=== PATIENT | male | born 1955 | race Caucasian/White ===

== ENCOUNTER 2019-12-07 16:48 | Inpatient (IN) | payer OTHER ==
[2019-12-07] MEDS ORDERED: SODIUM CHLORIDE 1,000 ML IV SCH (17:00)
[2019-12-07 17:27] LABS: BASO % 1.2 % (0-2.0); HEMATOCRIT 48.1 % (35.4-49); HEMOGLOBIN 15.9 GM/dl (11.7-16.9); LYMPH % 16.3 % (8-40); MCH 30.3 pg (25.7-33.7); MEAN CELL VOLUME 91.7 fl (80-96); MEAN PLT VOLUME 7.4 fl (7.5-11.1); MONO % 6.8 % (3.8-10.2); NEUT % 74.7 % (42.8-82.8); PLATELET COUNT 240 K/MM3 (134-434); RBC 5.25 M/mm3 (4.00-5.60); RDW 12.5 % (11.9-15.9); WHITE BLOOD COUNT 8.6 K/mm3 (4.0-10.8)
[2019-12-07 17:48] LABS: BILIRUBIN,TOTAL 0.8 mg/dl (0.2-1); CALCIUM 8.6 mg/dl (8.5-10); CREATININE 0.8 mg/dl (0.55-1.3); POTASSIUM 3.9 mmol/L (3.5-5.1); TOT PROT 6.7 g/dl (6.4-8.2)
[2019-12-07 17:49] LABS: URINE APPEARANCE CLEAR; URINE BILIRUBIN NEGATIVE (NEGATIVE); URINE COLOR YELLOW; URINE GLUCOSE (UA) NEGATIVE (NEGATIVE); URINE KETONE NEGATIVE (NEGATIVE)
[2019-12-07 17:50] LABS: PH,URINE 5.5 (4.5-8); URINE LEUK ESTERASE NEGATIVE (NEGATIVE); URINE NITRITE NEGATIVE (NEGATIVE); URINE PROTEIN NEGATIVE (NEGATIVE); URINE UROBILINOGEN 0.2 (0.2-1.0)
[2019-12-07 17:52] LABS: INR 1.01 (0.82-1.09); PROTHROMBIN TIME (PATIENT) 12.9 SEC (10.2-13.0)
[2019-12-07 17:53] LABS: ACTIVATED PTT 26.3 SECONDS (25.2-36.5)
--- NOTE | 2019-12-07 18:13 | PDOC ---
Attending Attestation - Resident Resident Name: Sagar Keith - ED Attending Attestation I have performed the following: I have examined & evaluated the patient, The case was reviewed & discussed with the resident, I agree w/resident's findings & plan, Exceptions are as noted - HPI HPI: 12/07/19 18:13 64 years old last seen normal at 9 AM presents to the ED with difficulty finding words did not remember his bosses name as well as where he was. Symptoms are improving but still not 100% back to baseline no weakness no numbness no severe headache No history of similar prior. Mild to moderate gradually improving. - Physicial Exam PE: 12/07/19 18:14 Vitals: Triage Vital signs reviewed General Appearance: No acute distress, well nourished well developed, Head: Atraumatic, Eyes: Pupils equal reactive round, extraocular movement intact Cardiac: Regular rate and rhythym, no murmurs, no rubs, no gallops, Lungs: Clear to auscultation bilateral, good air movement bilaterally, Abdomen: Soft, non distended, normal bowel sounds, non tender to palpation Extremities: Full range of motion to all extremities, no cyanosis, clubbing, or edema Skin: Warm and dry, no rashes or lesions, no rash, no petechiae Neuro: AOX3; cranial Nerves 2-12 grossly intact, strength intact to all extremities, sensation intact to all extremities, gait normal Psych: Normal mood, normal affect - Medical Decision Making 12/07/19 18:13 Patient still with some persistent subtle word finding difficulty. Given age high cholesterol will give full dose aspirin admit to medicine for neurology consultation and MRI to rule out CVA Currently NIHSS score 0 Heart Score/ECG Review - ECG Impressions Comment:: 12/07/19 18:14 EKG performed at 1712 demonstrates normal sinus rhythm no ST elevations no T wave inversions Interpreted by me. Discharge - Discharge Information Problems reviewed: Yes Clinical Impression/Diagnosis: Word finding difficulty, TIA (transient ischemic attack) Condition: Fair - Follow up/Referral - Patient Discharge Instructions - Post Discharge Activity
[2019-12-07] MEDS ORDERED: ASPIRIN 81 MG CHEWABLE TABLETS PO ONE (18:23)
[2019-12-07] MEDS ORDERED: ASPIRIN 81 MG CHEWABLE TABLETS ONE (18:33)
--- NOTE | 2019-12-07 18:41 | PDOC ---
History of Present Illness - General Chief Complaint: Altered Mental Status Stated Complaint: "I FELT DISORIENTED" Time Seen by Provider: 12/07/19 16:50 - History of Present Illness Initial Comments: 64 YOM h/o depression and HLD presents for episode of confusion and disorientation this am. 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 This concerned him so he presented to urgent care who suggested he present to the ED for a CT head. He denies CP, SOB, N/V/D, fever, chills, recent sick contacts, diziness, balance disturbance, weakness or loss of sensation. He says that this is the first time this has ever happened to him. He feels that he has not returned to baseline as he is still unsure of his supervisors name. Past History - Medical History Allergies/Adverse Reactions: Allergies Allergy/AdvReac Type Severity Reaction Status Date / Time No Known Allergies Allergy Verified 12/07/19 16:49 Home Medications: Ambulatory Orders Aspirin [Aspirin EC] 81 mg PO DAILY 12/07/19 Pravastatin Sodium [Pravachol] 0 mg PO DAILY 12/07/19 Sertraline HCl [Zoloft] 0 mg PO DAILY 12/07/19 COPD: No Hypercholesterolemia: Yes Psychiatric Problems: Yes (depression) - Psycho-Social/Smoking History Smoking History: Never smoked Have you smoked in the past 12 months: No Information on smoking cessation initiated: No - Substance Abuse Hx (Audit-C & DAST Scrn) How often the patient has a drink containing alcohol: Never Score: In Men: 4 or > Positive; In Women: 3 or > Positive: 0 Screen Result (Pos requires Nsg. Audit-10AR): Negative In the last yr the pt used illegal drug/Rx for NonMed reason: No Score: Yes response is considered Positive: 0 Screen Result (Positive result requires Nsg. DAST-10): Negative Review of Systems - Review of Systems Able to Perform ROS?: Yes Constitutional: Yes: See HPI HEENTM: Yes: See HPI Respiratory: Yes: See HPI Cardiac (ROS): Yes: See HPI ABD/GI: Yes: See HPI : Yes: See HPI Musculoskeletal: Yes: See HPI Integumentary: Yes: See HPI Neurological: Yes: See HPI Endocrine: Yes: See HPI Hematologic/Lymphatic: Yes: See HPI *Physical Exam - Vital Signs Last Vital Signs Temp Pulse Resp BP Pulse Ox 98 F 74 18 132/90 99 12/07/19 16:48 12/07/19 16:48 12/07/19 16:48 12/07/19 16:48 12/07/19 16:48 - Physical Exam General Appearance: Yes: Nourished, Appropriately Dressed HEENT: positive: EOMI, MANDEEP, Normal ENT Inspection, Normal Voice Neck: positive: Trachea midline, Normal Thyroid Respiratory/Chest: positive: Lungs Clear, Normal Breath Sounds Cardiovascular: positive: Regular Rhythm, Regular Rate, S1, S2 Gastrointestinal/Abdominal: positive: Normal Bowel Sounds, Flat, Soft 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 intact, Fully Oriented, Alert, Normal Mood/Affect, Normal Response, Motor Strength 5/5 ED Treatment Course - LABORATORY CBC & Chemistry Diagram: 12/07/19 17:17 12/07/19 17:00 - ADDITIONAL ORDERS Additional order review: Laboratory Results 12/07/19 12/07/19 12/07/19 17:17 17:00 17:00 PT with INR INR PTT (Actin FS) Sodium 137 Potassium 3.9 Chloride 107 Carbon Dioxide 25 Anion Gap 5 L BUN 15.0 Creatinine 0.8 Est GFR (CKD-EPI)AfAm 107.89 Est GFR (CKD-EPI)NonAf 93.09 Random Glucose 92 Calcium 8.6 Total Bilirubin 0.8 AST 16 ALT 20 Alkaline Phosphatase 61 Troponin I < 0.03 Total Protein 6.7 Albumin 4.0 Triglycerides 160 H Cholesterol 187 Total LDL Cholesterol 113 H HDL Cholesterol 42 Urine Color Yellow Urine Appearance Clear Urine pH 5.5 Ur Specific [place] 1.025 Urine Protein Negative Urine Glucose (UA) Negative Urine Ketones Negative Urine Blood Negative Urine Nitrite Negative Urine Bilirubin Negative Urine Urobilinogen 0.2 Ur Leukocyte Esterase Negative 12/07/19 16:56 PT with INR 12.9 INR 1.01 PTT (Actin FS) 26.3 Sodium Potassium Chloride Carbon Dioxide Anion Gap BUN Creatinine Est GFR (CKD-EPI)AfAm Est GFR (CKD-EPI)NonAf Random Glucose Calcium Total Bilirubin AST ALT Alkaline Phosphatase Troponin I Total Protein Albumin Triglycerides Cholesterol Total LDL Cholesterol HDL Cholesterol Urine Color Urine Appearance Urine pH Ur Specific [place] Urine Protein Urine Glucose (UA) Urine Ketones Urine Blood Urine Nitrite Urine Bilirubin Urine Urobilinogen Ur Leukocyte Esterase 12/07/19 17:17 RBC 5.25 MCV 91.7 MCHC 33.0 RDW 12.5 MPV 7.4 L Neutrophils % 74.7 Lymphocytes % 16.3 Monocytes % 6.8 Eosinophils % 1.0 Basophils % 1.2 Medical Decision Making - Medical Decision Making 64 YOM h/o depression and HLD presents after episode of confusion and disorientation. - has not returned to baseline - vitals stable - exam unremarkable - given persistent sx will CT head and admit for TIA work up 12/07/19 18:44 - labs wnl - CT wnl - admitting for persisting sx Discharge - Discharge Information Problems reviewed: Yes Clinical Impression/Diagnosis: Word finding difficulty, TIA (transient ischemic attack) Condition: Fair - Admission Yes - Follow up/Referral Referrals: Dayday Guevara MD [Primary Care Provider] - - Patient Discharge Instructions - Post Discharge Activity
--- NOTE | 2019-12-07 20:32 | HP ---
CHIEF COMPLAINT: AMS, Headache PCP: Dayday Guevara HISTORY OF PRESENT ILLNESS: This is a 64 y/o male with a PMHx of Depression, HLD. Who presents to the ED with an episode of confusion and disorientation x this morning. 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 He became concerned and went to an Urgent Care Facility for evaluation, who suggested he come to the hospital for a Head CT. Per the patient, he said his noted that he was not acting like himself today. Patient denies visual changes, numbness, weakness. Patient denies fever, chills, cough, SOB, dizziness, CP, palpitations, AP, N/V/D, constipation, melena, hematochezia, dysuria. ER course was notable for: (1) Head CT- neg ICH (2) EKG- NSR with no ST or TWI (3) NIHSS 0 Recent Travel: None PAST MEDICAL HISTORY: See HPI PAST SURGICAL HISTORY: Ganglion Cyst Removal Social History: Smoking: Former 1PPD > 45 yrs ago Alcohol: Former> 30yrs ago Drugs: Denies Lives with spouse, employed [employer], [employer] Guidance Counselor Allergies No Known Allergies Allergy (Verified 12/07/19 16:49) HOME MEDICATIONS: Home Medications Medication Instructions Recorded Aspirin [Aspirin EC] 81 mg PO DAILY 12/07/19 Pravastatin Sodium [Pravachol] 0 mg PO DAILY 12/07/19 Sertraline HCl [Zoloft] 0 mg PO DAILY 12/07/19 REVIEW OF SYSTEMS CONSTITUTIONAL: Absent: fever, chills, diaphoresis, generalized weakness, malaise, loss of appetite, weight change HEENT: Absent: rhinorrhea, nasal congestion, throat pain, throat swelling, difficulty swallowing, mouth swelling, ear pain, eye pain, visual changes CARDIOVASCULAR: Absent: chest pain, syncope, palpitations, irregular heart rate, lightheadedness, peripheral edema RESPIRATORY: Absent: cough, shortness of breath, dyspnea with exertion, orthopnea, wheezing, stridor, hemoptysis GASTROINTESTINAL: Absent: abdominal pain, abdominal distension, nausea, vomiting, diarrhea, constipation, melena, hematochezia GENITOURINARY: Absent: dysuria, frequency, urgency, hesitancy, hematuria, flank pain, genital pain MUSCULOSKELETAL: Absent: myalgia, arthralgia, joint swelling, back pain, neck pain SKIN: Absent: rash, itching, pallor HEMATOLOGIC/IMMUNOLOGIC: Absent: easy bleeding, easy bruising, lymphadenopathy, frequent infections ENDOCRINE: Absent: unexplained weight gain, unexplained weight loss, heat intolerance, cold intolerance NEUROLOGIC: headache, mental status changes Absent: focal weakness or paresthesias, dizziness, unsteady gait, seizure, bladder or bowel incontinence PSYCHIATRIC: Absent: anxiety, depression, suicidal or homicidal ideation, hallucinations. PHYSICAL EXAMINATION Vital Signs - 24 hr 12/07/19 12/07/19 12/07/19 16:48 18:44 19:30 Temperature 98 F 98 F Pulse Rate 74 Pulse Rate [ 71 69 Left Apical] Respiratory 18 18 16 Rate Blood Pressure 132/90 Blood Pressure 113/67 118/77 [Right Arm] O2 Sat by Pulse 99 98 98 Oximetry (%) GENERAL: Awake, alert, and fully oriented, in no acute distress. HEAD: Normal with no signs of trauma. EYES: Pupils equal, round and reactive to light, extraocular movements intact, sclera anicteric, conjunctiva clear. No lid lag. EARS, NOSE, THROAT: Ears normal, nares patent, oropharynx clear without exudates. Moist mucous membranes. NECK: Normal range of motion, supple without lymphadenopathy, JVD, or masses. LUNGS: Breath sounds equal, clear to auscultation bilaterally. No wheezes, and no crackles. No accessory muscle use. HEART: Regular rate and rhythm, normal S1 and S2 without murmur, rub or gallop. ABDOMEN: Soft, nontender, not distended, normoactive bowel sounds, no guarding, no rebound, no masses. No hepatomegaly or splenomegaly. MUSCULOSKELETAL: Normal range of motion at all joints. No bony deformities or tenderness. No CVA tenderness. UPPER EXTREMITIES: 2+ pulses, warm, well-perfused. No cyanosis. No clubbing. No peripheral edema. LOWER EXTREMITIES: 2+ pulses, warm, well-perfused. No calf tenderness. No peripheral edema. NEUROLOGICAL: Cranial nerves II-XII intact. Normal speech. Strength intact to all extremities, Sensation intact to all extremities. Gait not observed. PSYCHIATRIC: Cooperative. Good eye contact. Appropriate mood and affect. SKIN: Warm, dry, normal turgor, no rashes or lesions noted, normal capillary refill. Laboratory Results - last 24 hr 12/07/19 12/07/19 12/07/19 16:56 17:00 17:00 WBC RBC Hgb Hct MCV MCH MCHC RDW Plt Count MPV Absolute Neuts (auto) Neutrophils % Lymphocytes % Monocytes % Eosinophils % Basophils % PT with INR 12.9 INR 1.01 PTT (Actin FS) 26.3 Sodium 137 Potassium 3.9 Chloride 107 Carbon Dioxide 25 Anion Gap 5 L BUN 15.0 Creatinine 0.8 Est GFR (CKD-EPI)AfAm 107.89 Est GFR (CKD-EPI)NonAf 93.09 Random Glucose 92 Calcium 8.6 Total Bilirubin 0.8 AST 16 ALT 20 Alkaline Phosphatase 61 Troponin I < 0.03 Total Protein 6.7 Albumin 4.0 Triglycerides 160 H Cholesterol 187 Total LDL Cholesterol 113 H HDL Cholesterol 42 Urine Color Urine Appearance Urine pH Ur Specific [place] Urine Protein Urine Glucose (UA) Urine Ketones Urine Blood Urine Nitrite Urine Bilirubin Urine Urobilinogen Ur Leukocyte Esterase Blood Type Antibody Screen 12/07/19 12/07/19 12/07/19 17:17 17:17 17:20 WBC 8.6 RBC 5.25 Hgb 15.9 Hct 48.1 MCV 91.7 MCH 30.3 MCHC 33.0 RDW 12.5 Plt Count 240 MPV 7.4 L Absolute Neuts (auto) 6.4 Neutrophils % 74.7 Lymphocytes % 16.3 Monocytes % 6.8 Eosinophils % 1.0 Basophils % 1.2 PT with INR INR PTT (Actin FS) Sodium Potassium Chloride Carbon Dioxide Anion Gap BUN Creatinine Est GFR (CKD-EPI)AfAm Est GFR (CKD-EPI)NonAf Random Glucose Calcium Total Bilirubin AST ALT Alkaline Phosphatase Troponin I Total Protein Albumin Triglycerides Cholesterol Total LDL Cholesterol HDL Cholesterol Urine Color Yellow Urine Appearance Clear Urine pH 5.5 Ur Specific [place] 1.025 Urine Protein Negative Urine Glucose (UA) Negative Urine Ketones Negative Urine Blood Negative Urine Nitrite Negative Urine Bilirubin Negative Urine Urobilinogen 0.2 Ur Leukocyte Esterase Negative Blood Type AB POSITIVE Antibody Screen Negative 12/07/19 17:21 WBC RBC Hgb Hct MCV MCH MCHC RDW Plt Count MPV Absolute Neuts (auto) Neutrophils % Lymphocytes % Monocytes % Eosinophils % Basophils % PT with INR INR PTT (Actin FS) Sodium Potassium Chloride Carbon Dioxide Anion Gap BUN Creatinine Est GFR (CKD-EPI)AfAm Est GFR (CKD-EPI)NonAf Random Glucose Calcium Total Bilirubin AST ALT Alkaline Phosphatase Troponin I Total Protein Albumin Triglycerides Cholesterol Total LDL Cholesterol HDL Cholesterol Urine Color Urine Appearance Urine pH Ur Specific [place] Urine Protein Urine Glucose (UA) Urine Ketones Urine Blood Urine Nitrite Urine Bilirubin Urine Urobilinogen Ur Leukocyte Esterase Blood Type AB POSITIVE Antibody Screen ASSESSMENT/PLAN: This is a 64 y/o male with a PMHx of Depression, HLD. Admitted to Telemetry for TIA for further evaluation of their emergent condition. Plan: See Problem List FEN PO fluids as tolerated Replete lytes prn Low Na, Low Cholesterol Diet DVT ppx OOB SCDs Heparin SQ Dispo: Requires Inpatient Care Family Medical History Family History: As Documented Family Hx Dementia: Mother ( age 80s) Family Hx Nuerologic Problems: Father (Multiple Strokes- age 80s) Problem List - Problem (1) TIA (transient ischemic attack) Assessment/Plan: NIHSS [address]- neg ICH Appreciate Neurology consult Neuro checks Serial Enzymes Trig- 160 LDL 113 Cardiac monitoring Carotid Doppler- r/o Stenosis CBC, CMP, HgbA1c in am Lipitor Asa Code(s): G45.9 - TRANSIENT CEREBRAL ISCHEMIC ATTACK, UNSPECIFIED (2) HLD (hyperlipidemia) Assessment/Plan: Pravastatin NF, will start Lipitor Monitor LFTs Code(s): E78.5 - HYPERLIPIDEMIA, UNSPECIFIED (3) Depression Assessment/Plan: Continue home med when verified Code(s): F32.9 - MAJOR DEPRESSIVE DISORDER, SINGLE EPISODE, UNSPECIFIED (4) Encounter for screening laboratory testing for COVID-19 virus Assessment/Plan: Low Risk COVID PCR Isolation Precautions Code(s): Z11.59 - ENCOUNTER FOR SCREENING FOR OTHER VIRAL DISEASES Visit type - Medication Review Med list reviewed for High Risk Meds patients 65 and older: Yes - Emergency Visit Emergency Visit: Yes ED Registration Date: 12/07/19 Care time: The patient presented to the Emergency Department on the above date and was hospitalized for further evaluation of their emergent condition. - New Patient This patient is new to me today: Yes Date on this admission: 12/07/19 - Critical Care Critical Care patient: No
[2019-12-07 21:34] VITALS: BMI 26.7
[2019-12-07] MEDS ORDERED: ATORVASTATIN CA 10 MG TABLET (FP) PO SCH (22:00)
[2019-12-08 08:40] LABS: BASO % 0.2 % (0-2.0); EOS % 1.6 % (0-4.5); HEMATOCRIT 42.9 % (35.4-49); HEMOGLOBIN 14.5 GM/dl (11.7-16.9); LYMPH % 23.4 % (8-40); MCHC 33.8 g/dl (32.0-35.9); MEAN CELL VOLUME 91.5 fl (80-96); NEUT % 67.8 % (42.8-82.8); PLATELET COUNT 197 K/MM3 (134-434); RBC 4.69 M/mm3 (4.00-5.60); RDW 12.2 % (11.9-15.9); WHITE BLOOD COUNT 6.2 K/mm3 (4.0-10.8)
[2019-12-08 09:20] LABS: ALBUMIN 3.6 g/dl (3.4-5.0); BILIRUBIN,TOTAL 0.9 mg/dl (0.2-1); CALCIUM 8.4 mg/dl (8.5-10); CREATININE 0.6 mg/dl (0.55-1.3); POTASSIUM 3.6 mmol/L (3.5-5.1); TOT PROT 5.7 g/dl (6.4-8.2)
[2019-12-08] MEDS ORDERED: DOCUSATE SODIUM 100 MG CAPSULE (FP) PO PRN (09:55)
[2019-12-08] MEDS ORDERED: POTASSIUM CHLORIDE TABS 20 MEQ TABLET.ER (FP) PO ONE (10:00)
[2019-12-08] MEDS ORDERED: PATIENT'S OWN MEDICATION (NON-FORMULARY) (Pravastatin Sodium [Pravachol] 40 MG) PO SCH (10:00)
[2019-12-08] MEDS ORDERED: SERTRALINE HCL 25 MG TABLET (FP) PO SCH (10:00)
[2019-12-08] MEDS ORDERED: ASPIRIN COATED 81 MG TABLET.EC PO SCH (10:00)
[2019-12-08] MEDS ORDERED: ASPIRIN 81 MG CHEWABLE TABLETS PO SCH (10:00)
--- NOTE | 2019-12-08 15:28 | PN ---
Progress Note, Physician Chief Complaint: Difficulty with word finding, confusion History of Present Illness: 24HR EVENTS: - mental status back to baseline. HPI: This is a 64 y/o male with a PMHx of Depression, HLD. Who presents to the ED with an episode of confusion and disorientation x this morning. 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 He became concerned and went to an Urgent Care Facility for evaluation, who suggested he come to the hospital for a Head CT. Per the patient, he said his noted that he was not acting like himself today. Patient denies visual changes, numbness, weakness. Patient denies fever, chills, cough, SOB, dizziness, CP, palpitations, AP, N/V/D, constipation, melena, hematochezia, dysuria. ER course was notable for: (1) Head CT- neg ICH (2) EKG- NSR with no ST or TWI (3) NIHSS 0 - Current Medication List Current Medications: Active Medications Aspirin (Asa -) 81 mg PO DAILY [facility] Last Admin: 12/08/19 09:21 Dose: 81 mg Documented by: Atorvastatin Calcium (Lipitor -) 10 mg PO HS [facility] Last Admin: 12/07/19 22:14 Dose: 10 mg Documented by: Docusate Sodium (Colace -) 100 mg PO BID PRN PRN Reason: CONSTIPATION Senna (Senna -) 2 tab PO HS PRN PRN Reason: CONSTIPATION Sertraline HCl (Zoloft -) 100 mg PO DAILY [facility] Last Admin: 12/08/19 10:36 Dose: 100 mg Documented by: - Objective Vital Signs: Vital Signs Temperature 98.9 F 12/08/19 14:00 Pulse Rate 77 12/08/19 14:00 Respiratory Rate 18 12/08/19 14:00 Blood Pressure 124/76 12/08/19 14:00 O2 Sat by Pulse Oximetry (%) 97 12/08/19 14:00 Constitutional: Yes: No Distress, Calm Eyes: Yes: Conjunctiva Clear HENT: Yes: Atraumatic, Normocephalic Neck: Yes: Supple, Trachea Midline Cardiovascular: Yes: Regular Rate and Rhythm Respiratory: Yes: Regular, CTA Bilaterally Gastrointestinal: Yes: Normal Bowel Sounds, Soft ...Rectal Exam: Yes: Deferred Musculoskeletal: Yes: WNL Extremities: Yes: WNL Edema: No Peripheral Pulses WNL: Yes Peripheral Pulses: Left Radial: 2+, Right Radial: 2+, Left Doralis Pedis: 2+, Right Dorsalis Pedis: 2+ Integumentary: Yes: WNL Neurological: Yes: Alert, Oriented, Cran Nerves II-XII Intact ...Motor Strength: WNL Psychiatric: Yes: Alert, Oriented Labs: CBC, BMP 12/08/19 08:24 12/08/19 06:00 INR, PTT INR 1.01 (0.82-1.09) 12/07/19 16:56 - ....Imaging Cat Scan: Report Reviewed (Head CT 12/07/19 stroke protocol Impression: No acute bleed or mass or fracture.No CT evidence of acute infarct. If symptoms persist consider MRI. PRELIMINARY REPORT PROVIDED BY RADIOLOGIST MINE SHIFTER according to stroke protocol. Reported By: Chun Love MD 12/08/19 0859) Problem List - Problems (1) Prophylactic measure Assessment/Plan: OOB to chair SCDs bowel regimen- senna/colace Code(s): Z29.9 - ENCOUNTER FOR PROPHYLACTIC MEASURES, UNSPECIFIED (2) Depression Assessment/Plan: continue zoloft 100mg daily Code(s): F32.9 - MAJOR DEPRESSIVE DISORDER, SINGLE EPISODE, UNSPECIFIED (3) Encounter for screening laboratory testing for COVID-19 virus Assessment/Plan: COVID screen pending- contact/droplet isolation Code(s): Z11.59 - ENCOUNTER FOR SCREENING FOR OTHER VIRAL DISEASES (4) HLD (hyperlipidemia) Assessment/Plan: continue lipitor hs cardiac diet Code(s): E78.5 - HYPERLIPIDEMIA, UNSPECIFIED (5) TIA (transient ischemic attack) Assessment/Plan: neuro consulted Head CT negative mental status back to baseline - ? MRI carotid doppler ordered c/w ASA and statin serial neuro exam Code(s): G45.9 - TRANSIENT CEREBRAL ISCHEMIC ATTACK, UNSPECIFIED Impression/Plan Impression/Plan: Dispo: pt can be discharged home in morning after being evaluated by neuro +/- brain MRI Code status: Full code Visit type - Emergency Visit Emergency Visit: Yes ED Registration Date: 12/07/19 Care time: The patient presented to the Emergency Department on the above date and was hospitalized for further evaluation of their emergent condition. - New Patient This patient is new to me today: Yes Date on this admission: 12/08/19 - Critical Care Critical Care patient: No - Discharge Referral Referred to [facility] Med P.C.: No - Medication Review Med list reviewed for High Risk Meds patients 65 and older: Yes
--- NOTE | 2019-12-08 18:13 | CONSULT ---
Consult - text type - Consultation Consultation Note: NEUROLOGY CONSULTATION is greatly appreciated: Events reviewed and discussed with ED last night. Patient examined. 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 e is maintained on Simvstatin, ASA, and sertraline (100 mg qd). Episodic hemicranial headaches a few times a year for most of his adult life. 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 Worked a long day on Monday (12 hrs). Yesterday AM felt unwell with the simultaneous development of a dull right hemicranial and facial headache. Had trouble with concentration and recall. He had his drive him back to work but was unable to proceed and came to the ED. CT of head (reviewed): Normal. Headache persisted all day but was gone this AM. Patient feels back to normal including cognition and was able to write this morning. MARITZA: Normal NEURO: MS/Speech: Normal. O x 3. Reverses and recalls 3 of 3 at 3 mins. CN II-XII: Normal Motor: No drift or tremor. Normal strength, bulk tone and reflexes. Toes downgoing Coord: Normal Sensory: Normal. Romberg neg Gait: Normal including tandem IMP: Normal Neurological exam Complicated migraine headache- resolved SUGGEST: OK to D/C Neurology follow-up as out patient ad david. Thank you very much, Fish Powell MD
[2019-12-08 19:35] VITALS: BP 119/78; PULSE 70; TEMP 98.7
--- NOTE | 2019-12-08 20:08 | DS ---
Physical Exam: SUBJECTIVE: Patient seen and examined OBJECTIVE: Vital Signs Period Temp Pulse Resp BP Sys/Garirson Pulse Ox Last 24 Hr 98.2 F-98.9 F 65-78 18-20 115-140/66-78 96-99 PHYSICAL EXAM GENERAL: The patient is awake, alert, and fully oriented, in no acute distress. HEAD: Normal with no signs of trauma. EYES: PERRL, extraocular movements intact, sclera anicteric, conjunctiva clear. ENT: Ears normal, nares patent, oropharynx clear without exudates, moist mucous membranes. NECK: Trachea midline, full range of motion, supple. LUNGS: Breath sounds equal, clear to auscultation bilaterally, no wheezes, no crackles, no accessory muscle use. HEART: Regular rate and rhythm, S1, S2 without murmur, rub or gallop. ABDOMEN: Soft, nontender, nondistended, normoactive bowel sounds, no guarding, no rebound, no hepatosplenomegaly, no masses. EXTREMITIES: 2+ pulses, warm, well-perfused, no edema. NEUROLOGICAL: Cranial nerves II through XII grossly intact. Normal speech, gait not observed. PSYCH: Normal mood, normal affect. SKIN: Warm, dry, normal turgor, no rashes or lesions noted. LABS Laboratory Results - last 24 hr 12/08/19 12/08/19 12/08/19 00:20 06:00 06:00 WBC RBC Hgb Hct MCV MCH MCHC RDW Plt Count MPV Absolute Neuts (auto) Neutrophils % Lymphocytes % Monocytes % Eosinophils % Basophils % Sodium 138 Potassium 3.6 Chloride 107 Carbon Dioxide 22 Anion Gap 9 BUN 14.0 Creatinine 0.6 Est GFR (CKD-EPI)AfAm 121.43 Est GFR (CKD-EPI)NonAf 104.77 Random Glucose 89 Hemoglobin A1c % Calcium 8.4 L Magnesium 2.0 Total Bilirubin 0.9 AST 14 L ALT 16 Alkaline Phosphatase 53 Creatine Kinase 112 Troponin I < 0.02 < 0.03 Total Protein 5.7 L Albumin 3.6 TSH 2.31 12/08/19 12/08/19 08:24 08:24 WBC 6.2 RBC 4.69 Hgb 14.5 Hct 42.9 MCV 91.5 MCH 31.0 MCHC 33.8 RDW 12.2 Plt Count 197 MPV 8.0 Absolute Neuts (auto) 4.2 Neutrophils % 67.8 Lymphocytes % 23.4 D Monocytes % 7.0 Eosinophils % 1.6 Basophils % 0.2 Sodium Potassium Chloride Carbon Dioxide Anion Gap BUN Creatinine Est GFR (CKD-EPI)AfAm Est GFR (CKD-EPI)NonAf Random Glucose Hemoglobin A1c % 4.8 Calcium Magnesium Total Bilirubin AST ALT Alkaline Phosphatase Creatine Kinase Troponin I Total Protein Albumin TSH HOSPITAL COURSE: Date of Admission:12/07/19 Date of Discharge: 12/08/19 Minutes to complete discharge: 15 Discharge Summary Problems reviewed: Yes Reason For Visit: TRANSIENT ISCHEMIC ATTACK Current Active Problems Complicated migraine (Acute) Depression (Acute) Encounter for screening laboratory testing for COVID-19 virus (Acute) HLD (hyperlipidemia) (Acute) Prophylactic measure (Acute) TIA (transient ischemic attack) (Acute) Word finding difficulty (Acute) Hospital Course: This is a 64 y/o male with a PMHx of Depression, HLD. Who presents to the ED with an episode of confusion and disorientation x this morning. 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 He became concerned and went to an Urgent Care Facility for evaluation, who suggested he come to the hospital for a Head CT. Per the patient, he said his noted that he was not acting like himself today. Patient denies visual changes, numbness, weakness. Patient denies fever, chills, cough, SOB, dizziness, CP, palpitations, AP, N/V/D, constipation, melena, hematochezia, dysuria. ER course was notable for: (1) Head CT- neg ICH (2) EKG- NSR with no ST or TWI (3) NIHSS 0 Patient evaluated by the Neurologist and was deemed stable for discharge home on the evening of 12/07. Plan of Treatment: Continue current medication regimen Take Tylenol prn for Headaches Goals: Reduction of LDL < 100 in 3 months Condition: Stable - Instructions Diet, Activity, Other Instructions: Follow up with your PMD this week Follow up with the Neurologist in the office as needed Call 911 right away for: Sudden severe headache Numbness, tingling or loss of feeling on 1 side of your face or body Visual changes Sudden trouble talking or slurring your speech Dizziness, loss of balance Blackouts Seizures Eat foods low in fat, cholesterol and sodium Referrals: Dayday Guevara MD [Primary Care Provider] - Fish Powell MD [Staff Physician] - Disposition: HOME - Home Medications Comprehensive Discharge Medication List: Ambulatory Orders Aspirin [Aspirin EC] 81 mg PO DAILY 12/07/19 Pravastatin Sodium [Pravachol] 40 mg PO DAILY 12/07/19 Sertraline HCl [Zoloft] 100 mg PO DAILY 12/07/19 Prescription Drug Monitoring Program (I-STOP) results: I-STOP reviewed and no issues identified Problem List - Problems (1) TIA (transient ischemic attack) Code(s): G45.9 - TRANSIENT CEREBRAL ISCHEMIC ATTACK, UNSPECIFIED (2) HLD (hyperlipidemia) Code(s): E78.5 - HYPERLIPIDEMIA, UNSPECIFIED (3) Depression Code(s): F32.9 - MAJOR DEPRESSIVE DISORDER, SINGLE EPISODE, UNSPECIFIED (4) Encounter for screening laboratory testing for COVID-19 virus Code(s): Z11.59 - ENCOUNTER FOR SCREENING FOR OTHER VIRAL DISEASES This patient is new to me today: Yes Date on this admission: 12/08/19 Emergency Visit: Yes ED Registration Date: 12/07/19 Care time: The patient presented to the Emergency Department on the above date and was hospitalized for further evaluation of their emergent condition. Critical Care patient: No - Discharge Referral Referred to [facility] Med P.C.: No
[2019-12-08] MEDS ORDERED: SENNOSIDES 8.6MG TABLET (FP) PO PRN (22:00)
--- NOTE | 2019-12-09 11:42 | EKG ---
Test Reason : Blood Pressure : / mmHG Vent. Rate : 072 BPM Atrial Rate : 072 BPM P-R Int : 108 ms QRS Dur : 086 ms QT Int : 382 ms P-R-T Axes : 037 049 049 degrees QTc Int : 418 ms SINUS RHYTHM WITH SHORT MI OTHERWISE NORMAL ECG NO PREVIOUS ECGS AVAILABLE Confirmed by KAUR RODRIGUEZ MD ([id number]) on 12/09/2019 11:41:26 AM Referred By: [facility] Confirmed By:KAUR RODRIGUEZ MD
== END 2019-12-08 19:45 | disposition home or self-care (01) | DRG 69 ==
LOC: FER 16:48 → FM/S 18:31
PROVIDERS: ADMIT Internal Medicine; ATTEND Nurse Practitioner Family
DX: G45.9 Transient cerebral ischemic attack, unspecified (principal); F32.9 Major depressive disorder, single episode, unspecified; G43.109 Migraine with aura, not intractable, without status migrainosus; E78.5 Hyperlipidemia, unspecified
CPT/HCPCS: 36415; 70450-TC; 80053; 80061; 81003; 82550; 83036; 83735; 84443; 84484; 85025; 85610; 85730; 86850; 86900; 86901; 93005; 99285-25; U0003